=== PATIENT | female | born 1995 | race Caucasian/White ===

== ENCOUNTER 2019-07-17 13:37 | Inpatient (IN) | payer MEDICAID ==
[~2019-07-17] VITALS: Ht 152.4 cm; Wt 56.2 kg
[2019-07-17] MEDS ORDERED: LAMO100 PO (14:07)
[2019-07-17] MEDS ORDERED: SERT100T12 PO (14:07)
[2019-07-17] MEDS ORDERED: NORG1TAB12 PO (14:07)
[2019-07-17] MEDS ORDERED: HALOPERIDOL 5 MG TABLET PO ONE (14:15)
[2019-07-17] MEDS ORDERED: DiphenhydrAMINE HCL 25 MG CAPSULE PO ONE (14:15)
[2019-07-17] MEDS ORDERED: LORazepam 2 MG TABLET PO ONE (14:15)
[2019-07-17 14:38] LABS: BASOPHILS % (AUTO) 1.2 % (0.0-2.0); EOSINOPHILS % (AUTO) 1.7 % (1.0-6.0); HEMATOCRIT 43.2 % (36-46); HEMOGLOBIN 14.4 g/dL (12.0-16.0); LYMPHOCYTES # (AUTO) 1.7 K/uL (1.0-4.8); LYMPHOCYTES % (AUTO) 22.3 % (22.0-44.0); MEAN CORPUSCULAR HEMOGLOBIN 28.9 pg (26.0-34.0); MEAN CORPUSCULAR HGB CONC 33.3 G/dL (31.0-37.0); MEAN CORPUSCULAR VOLUME 87 fL (80-100); MONOCYTES # (AUTO) 0.5 K/uL (0.1-1.0); MONOCYTES % (AUTO) 5.9 % (2.0-9.0); NEUTROPHILS # (AUTO) 5.2 K/uL (1.8-7.7); NEUTROPHILS % (AUTO) 68.9 % (40.0-70.0); PLATELET COUNT (AUTO) 441 K/uL (150-450); RED BLOOD CELL COUNT(AUTO) 4.97 MIL/uL (4.00-5.20); RED CELL DISTRIBUTION WIDTH 13.7 % (11.5-14.5)
[2019-07-17 14:55] LABS: ANION GAP 14 mmol/L (8-16); CALCIUM, TOTAL 9.3 mg/dL (8.8-10.5); CARBON DIOXIDE 25 mmol/L (22-29); CHLORIDE 104 mmol/L (98-107); CREATININE 0.98 mg/dL (0.60-1.30); GLOMERULAR FILTR. RATE CALC > 60 mL/min (>60); GLUCOSE,RANDOM 98 mg/dL (70-110); POTASSIUM 4.1 mmol/L (3.5-5.1); SODIUM SERUM 143 mmol/L (136-145); UREA NITROGEN, BLOOD 14 mg/dL (7-18)
[2019-07-17 14:58] LABS: ALANINE AMINOTRANSFERASE 25 U/L (12-78); ALBUMIN 4.5 g/dL (3.4-5.0); ALKALINE PHOSPHATASE 40 U/L (46-116); ASPARTATE AMINOTRANSFERASE 18 U/L (15-37); BILIRUBIN,TOTAL 0.4 mg/dL (0.1-1.0); TOTAL PROTEIN, SERUM 8.5 g/dL (6.4-8.2)
[2019-07-17 16:23] LABS: AMPHET/METH SCREEN,URINE NEGATIVE (NEGATIVE); BARBITURATE SCREEN, URINE NEGATIVE (NEGATIVE); BENZODIAZEPINES SCREEN,URINE NEGATIVE (NEGATIVE); CANNABINOID SCREEN,URINE POSITIVE (NEGATIVE); COCAINE SCREEN,URINE NEGATIVE (NEGATIVE); METHADONE SCREEN, URINE NEGATIVE (NEGATIVE); OPIATE SCREEN,URINE NEGATIVE (NEGATIVE); PHENCYCLIDINE SCREEN,URINE NEGATIVE (NEGATIVE)
[2019-07-17 21:13] VITALS: BP 128/68
[2019-07-18] MEDS ORDERED: INFLUENZA VIRUS VACCINE QVS 2019-20 (3YR+)/PF 60 MCG/0.5 ML SYRINGE IM ONE (00:15)
[2019-07-18 07:20] VITALS: BP 122/64
[2019-07-18 07:21] VITALS: BP 125/69
[2019-07-18 08:02] VITALS: BP 147/103
[2019-07-18] MEDS: LORazepam 2 MG TABLET PO PRN ×2 (08:11→16:37)
[2019-07-18 09:06] LABS: CHOL/HDL RATIO 2.4 (3.9-5.7); CHOLESTEROL 167 mg/dL (131-200); FREE T4 (FREE THYROXINE) 1.07 ng/dL (0.76-1.46); HCG,QUANTITATIVE < 1 mIU/mL (0-6); HDL CHOLESTEROL 71 mg/dL (40-60); LDL CHOL (CALC.) 76 mg/dL (0-130); THYROID STIMULATING HORMONE 1.45 uIU/mL (0.36-3.74); TRIGLYCERIDES 102 mg/dL (15-150)
[2019-07-18 14:04] VITALS: BP 111/68
[2019-07-18 16:05] VITALS: BP 109/78
[2019-07-18] MEDS: DIVALPROEX SODIUM 500 MG DR TABLET PO SCH (16:37)
[2019-07-18] MEDS: LITHIUM CARBONATE 300 MG CAPSULE PO SCH (16:37)
[2019-07-18] MEDS ORDERED: LOPERAMIDE HCL 2 MG CAPSULE PO PRN (21:00)
[2019-07-18] MEDS ORDERED: BACITRACIN 28.4 GM OINTMENT TP PRN (21:00)
[2019-07-18] MEDS ORDERED: MAG HYDROX/AL HYDROX/SIMETH ES 30 ML SUSPENSION UDCUP PO PRN (21:00)
[2019-07-18] MEDS ORDERED: ALBUTEROL SULFATE HFA 90 MCG/PUFF 8 GM INHALER IH PRN (21:00)
[2019-07-18] MEDS ORDERED: BENZOCAINE/MENTHOL LOZENGE MM PRN (21:00)
[2019-07-18] MEDS ORDERED: ONDANSETRON HCL 4 MG TABLET PO PRN (21:00)
[2019-07-18] MEDS ORDERED: ACETAMINOPHEN 325 MG TABLET PO PRN (21:00)
[2019-07-18] MEDS ORDERED: MAGNESIUM HYDROXIDE SUSPENSION 30 ML UDCUP PO PRN (21:00)
[2019-07-18] MEDS ORDERED: IBUPROFEN 600 MG TABLET PO PRN (21:00)
[2019-07-18] MEDS ORDERED: PETROLATUM,WHITE 28 GM JELLY TP PRN (21:00)
[2019-07-18] MEDS ORDERED: CloNIDine HCL 0.1 MG TABLET PO PRN (21:00)
[2019-07-19 07:05] VITALS: BP 107/78
[2019-07-19 08:07] VITALS: BP 138/79
[2019-07-19] MEDS: OMEPRAZOLE 20 MG CAPSULE PO SCH (08:09)
[2019-07-19] MEDS: LITHIUM CARBONATE 300 MG CAPSULE PO SCH ×2 (08:09→15:56)
[2019-07-19] MEDS: DOCUSATE SODIUM 100 MG CAPSULE PO SCH (08:10)
[2019-07-19] MEDS: DIVALPROEX SODIUM 500 MG DR TABLET PO SCH ×2 (08:10→15:57)
[2019-07-19] MEDS: RisperiDONE 3 MG TABLET PO SCH ×2 (08:33→15:57)
[2019-07-19 09:10] LABS: LITHIUM 0.2 mmol/L (0.60-1.20)
[2019-07-19] MEDS: LORazepam 2 MG TABLET PO PRN (09:16)
[2019-07-19 16:01] VITALS: BP 102/65
[2019-07-20] MEDS ORDERED: DIVA-78 PO (02:32)
[2019-07-20] MEDS ORDERED: LITH300C3 PO (02:32)
[2019-07-20] MEDS ORDERED: RISP3 PO (02:32)
[2019-07-20 06:37] VITALS: BP 102/63
[2019-07-20 08:25] VITALS: BP 143/77
[2019-07-20] MEDS: OMEPRAZOLE 20 MG CAPSULE PO SCH (08:31)
[2019-07-20] MEDS: RisperiDONE 3 MG TABLET PO SCH ×2 (08:31→16:09)
[2019-07-20] MEDS: LITHIUM CARBONATE 300 MG CAPSULE PO SCH ×2 (08:31→16:09)
[2019-07-20] MEDS: DOCUSATE SODIUM 100 MG CAPSULE PO SCH (08:31)
[2019-07-20] MEDS: DIVALPROEX SODIUM 500 MG DR TABLET PO SCH ×2 (08:31→16:09)
[2019-07-20] MEDS: LORazepam 2 MG TABLET PO PRN (16:13)
[2019-07-20 16:24] VITALS: BP 120/72
[2019-07-21 02:15] VITALS: BP 103/51
[2019-07-21] MEDS: HALOPERIDOL 5 MG TABLET PO PRN (05:35)
[2019-07-21] MEDS: LORazepam 2 MG TABLET PO PRN (05:35)
[2019-07-21 08:23] VITALS: BP 109/66
[2019-07-21] MEDS: DOCUSATE SODIUM 100 MG CAPSULE PO SCH (08:38)
[2019-07-21] MEDS: RisperiDONE 3 MG TABLET PO SCH ×2 (08:39→16:05)
[2019-07-21] MEDS: OMEPRAZOLE 20 MG CAPSULE PO SCH (08:39)
[2019-07-21] MEDS: LITHIUM CARBONATE 300 MG CAPSULE PO SCH ×2 (08:39→16:05)
[2019-07-21] MEDS: DIVALPROEX SODIUM 500 MG DR TABLET PO SCH ×2 (08:39→16:05)
[2019-07-21 16:01] VITALS: BP 103/69
[2019-07-22 02:38] VITALS: BP 112/75
[2019-07-22] MEDS: HALOPERIDOL 5 MG TABLET PO PRN ×2 (02:46→18:42)
[2019-07-22] MEDS: LORazepam 2 MG TABLET PO PRN ×2 (02:46→18:43)
[2019-07-22 08:12] VITALS: BP 110/71
[2019-07-22] MEDS: DIVALPROEX SODIUM 500 MG DR TABLET PO SCH ×2 (08:51→16:36)
[2019-07-22] MEDS: LITHIUM CARBONATE 300 MG CAPSULE PO SCH ×2 (08:51→16:36)
[2019-07-22] MEDS: DOCUSATE SODIUM 100 MG CAPSULE PO SCH (08:51)
[2019-07-22] MEDS: RisperiDONE 3 MG TABLET PO SCH ×2 (08:51→16:36)
[2019-07-22] MEDS: OMEPRAZOLE 20 MG CAPSULE PO SCH (08:51)
[2019-07-22 16:11] VITALS: BP 100/60
[2019-07-22] MEDS: ZOLPIDEM TARTRATE 10 MG TABLET PO PRN (20:09)
[2019-07-23] MEDS: HALOPERIDOL 5 MG TABLET PO PRN (05:17)
[2019-07-23] MEDS: LORazepam 2 MG TABLET PO PRN (05:17)
[2019-07-23 06:20] VITALS: BP 103/62
[2019-07-23 08:07] VITALS: BP 107/46
[2019-07-23] MEDS: RisperiDONE 3 MG TABLET PO SCH ×2 (09:08→16:40)
[2019-07-23] MEDS: OMEPRAZOLE 20 MG CAPSULE PO SCH (09:08)
[2019-07-23] MEDS: DOCUSATE SODIUM 100 MG CAPSULE PO SCH (09:08)
[2019-07-23] MEDS: DIVALPROEX SODIUM 500 MG DR TABLET PO SCH ×2 (09:08→16:41)
[2019-07-23] MEDS: LITHIUM CARBONATE 300 MG CAPSULE PO SCH ×2 (09:08→16:40)
[2019-07-23 16:01] VITALS: BP 108/65
[2019-07-23] MEDS: ZOLPIDEM TARTRATE 10 MG TABLET PO PRN (20:33)
[2019-07-24 03:55] VITALS: BP 105/64
[2019-07-24] MEDS: HALOPERIDOL 5 MG TABLET PO PRN (03:58)
[2019-07-24] MEDS: LORazepam 2 MG TABLET PO PRN ×2 (03:58→16:00)
[2019-07-24 07:54] LABS: LITHIUM 0.4 mmol/L (0.60-1.20)
[2019-07-24 08:27] VITALS: BP 110/65
[2019-07-24] MEDS: LITHIUM CARBONATE 300 MG CAPSULE PO SCH ×2 (09:05→16:00)
[2019-07-24] MEDS: DOCUSATE SODIUM 100 MG CAPSULE PO SCH (09:05)
[2019-07-24] MEDS: OMEPRAZOLE 20 MG CAPSULE PO SCH (09:05)
[2019-07-24] MEDS: DIVALPROEX SODIUM 500 MG DR TABLET PO SCH ×2 (09:05→16:00)
[2019-07-24] MEDS: RisperiDONE 3 MG TABLET PO SCH ×2 (09:05→16:00)
[2019-07-24 16:06] VITALS: BP 111/69
[2019-07-25 02:17] VITALS: BP 115/69
[2019-07-25] MEDS: ZOLPIDEM TARTRATE 10 MG TABLET PO PRN (02:24)
[2019-07-25] MEDS: LORazepam 2 MG TABLET PO PRN ×2 (02:24→21:21)
[2019-07-25 08:12] VITALS: BP 116/61
[2019-07-25] MEDS: RisperiDONE 3 MG TABLET PO SCH ×2 (08:34→16:24)
[2019-07-25] MEDS: DOCUSATE SODIUM 100 MG CAPSULE PO SCH (08:35)
[2019-07-25] MEDS: DIVALPROEX SODIUM 500 MG DR TABLET PO SCH ×3 (08:35→16:24)
[2019-07-25] MEDS: LITHIUM CARBONATE 300 MG CAPSULE PO SCH ×3 (08:35→16:24)
[2019-07-25] MEDS: OMEPRAZOLE 20 MG CAPSULE PO SCH (08:35)
[2019-07-25 16:01] VITALS: BP 138/79
[2019-07-26 06:51] VITALS: BP 110/72
[2019-07-26 08:02] VITALS: BP 117/68
[2019-07-26] MEDS: OMEPRAZOLE 20 MG CAPSULE PO SCH (08:47)
[2019-07-26] MEDS: DOCUSATE SODIUM 100 MG CAPSULE PO SCH (08:47)
[2019-07-26] MEDS: RisperiDONE 3 MG TABLET PO SCH ×2 (08:47→16:18)
[2019-07-26] MEDS: DIVALPROEX SODIUM 500 MG DR TABLET PO SCH ×3 (08:47→16:17)
[2019-07-26] MEDS: LITHIUM CARBONATE 300 MG CAPSULE PO SCH ×3 (08:47→16:17)
[2019-07-26] MEDS ORDERED: DIVA-76 PO (14:33)
[2019-07-26] MEDS ORDERED: LITH300C3 PO (14:33)
== END 2019-07-26 15:42 | disposition home or self-care (01) | DRG 753 ==
LOC: EMS 13:38 → B3A 17:51
PROVIDERS: ADMIT Psychiatry & Neurology Psychiatry; ATTEND Psychiatry & Neurology Psychiatry
PROC: 3E0234Z Introduction of Serum, Toxoid and Vaccine into Muscle, Percutaneous Approach (ICD-10-PCS; principal; 2019-07-18)
DX: F31.81 Bipolar II disorder (principal); R45.850 Homicidal ideations; R45.851 Suicidal ideations; F43.10 Post-traumatic stress disorder, unspecified; G47.00 Insomnia, unspecified; K59.00 Constipation, unspecified; F12.90 Cannabis use, unspecified, uncomplicated; Z79.899 Other long term (current) drug therapy; Z23 Encounter for immunization
CPT/HCPCS: 84439; 84443; 90686; G0480

== ENCOUNTER 2019-07-28 13:32 | Inpatient (IN) | payer MEDICAID ==
[~2019-07-28] VITALS: Ht 152.4 cm; Wt 60.3 kg
[~2019-07-28 13:32] MED LIST: DIVA-76 PO; LITH300C3 PO; RISP3 PO
[2019-07-28] MEDS ORDERED: HALOPERIDOL 5 MG TABLET PO PRN (14:45)
[2019-07-28] MEDS ORDERED: DIVA-78 PO (15:04)
[2019-07-28 15:45] VITALS: BP 147/61
[2019-07-28 16:21] VITALS: BP 117/68
[2019-07-28] MEDS: LORazepam 2 MG TABLET PO PRN (16:40)
[2019-07-28] MEDS ORDERED: BACITRACIN 28.4 GM OINTMENT TP PRN (17:15)
[2019-07-28] MEDS ORDERED: OMEPRAZOLE 20 MG CAPSULE PO PRN (17:15)
[2019-07-28] MEDS ORDERED: IBUPROFEN 600 MG TABLET PO PRN (17:15)
[2019-07-28] MEDS ORDERED: LOPERAMIDE HCL 2 MG CAPSULE PO PRN (17:15)
[2019-07-28] MEDS ORDERED: PNEUMOCOCCAL VACCINE POLYVALENT 0.5 ML VIAL [PPSV23] IM ONE (17:15)
[2019-07-28] MEDS ORDERED: MAG HYDROX/AL HYDROX/SIMETH ES 30 ML SUSPENSION UDCUP PO PRN (17:15)
[2019-07-28] MEDS ORDERED: MAGNESIUM HYDROXIDE SUSPENSION 30 ML UDCUP PO PRN (17:15)
[2019-07-28] MEDS ORDERED: DOCUSATE SODIUM 100 MG CAPSULE PO PRN (17:15)
[2019-07-28] MEDS ORDERED: ALBUTEROL SULFATE HFA 90 MCG/PUFF 8 GM INHALER IH PRN (17:15)
[2019-07-28] MEDS ORDERED: BENZOCAINE/MENTHOL LOZENGE MM PRN (17:15)
[2019-07-28] MEDS ORDERED: ONDANSETRON HCL 4 MG TABLET PO PRN (17:15)
[2019-07-28] MEDS ORDERED: -PHARMACY VACCINE NOTE- MISC ONE (17:15)
[2019-07-28] MEDS ORDERED: PETROLATUM,WHITE 28 GM JELLY TP PRN (17:15)
[2019-07-28] MEDS ORDERED: ACETAMINOPHEN 325 MG TABLET PO PRN (17:15)
[2019-07-28] MEDS ORDERED: CloNIDine HCL 0.1 MG TABLET PO PRN (17:15)
[2019-07-28 17:54] VITALS: BP 105/68
[2019-07-29 06:35] VITALS: BP 112/67
[2019-07-29 07:37] LABS: BASOPHILS % (AUTO) 2.3 % (0.0-2.0); EOSINOPHILS % (AUTO) 7.5 % (1.0-6.0); HEMATOCRIT 40.1 % (36-46); HEMOGLOBIN 13.5 g/dL (12.0-16.0); LYMPHOCYTES # (AUTO) 2.3 K/uL (1.0-4.8); LYMPHOCYTES % (AUTO) 40.7 % (22.0-44.0); MEAN CORPUSCULAR HEMOGLOBIN 29.4 pg (26.0-34.0); MEAN CORPUSCULAR HGB CONC 33.6 G/dL (31.0-37.0); MEAN CORPUSCULAR VOLUME 88 fL (80-100); MONOCYTES # (AUTO) 0.8 K/uL (0.1-1.0); MONOCYTES % (AUTO) 14.2 % (2.0-9.0); NEUTROPHILS % (AUTO) 35.3 % (40.0-70.0); PLATELET COUNT (AUTO) 329 K/uL (150-450); RED BLOOD CELL COUNT(AUTO) 4.58 MIL/uL (4.00-5.20); RED CELL DISTRIBUTION WIDTH 13.2 % (11.5-14.5)
[2019-07-29 07:59] LABS: ALANINE AMINOTRANSFERASE 18 U/L (12-78); ALBUMIN 3.6 g/dL (3.4-5.0); ALKALINE PHOSPHATASE 37 U/L (46-116); ANION GAP 6 mmol/L (8-16); ASPARTATE AMINOTRANSFERASE 9 U/L (15-37); BILIRUBIN,TOTAL 0.3 mg/dL (0.1-1.0); CALCIUM, TOTAL 8.8 mg/dL (8.8-10.5); CARBON DIOXIDE 29 mmol/L (22-29); CHLORIDE 105 mmol/L (98-107); CHOL/HDL RATIO 1.8 (3.9-5.7); CHOLESTEROL 152 mg/dL (131-200); CREATININE 0.86 mg/dL (0.60-1.30); FREE T4 (FREE THYROXINE) 0.81 ng/dL (0.76-1.46); GLOMERULAR FILTR. RATE CALC > 60 mL/min (>60); GLUCOSE,RANDOM 83 mg/dL (70-110); HCG,QUANTITATIVE < 1 mIU/mL (0-6); HDL CHOLESTEROL 84 mg/dL (40-60); LDL CHOL (CALC.) 55 mg/dL (0-130); POTASSIUM 4.1 mmol/L (3.5-5.1); SODIUM SERUM 140 mmol/L (136-145); THYROID STIMULATING HORMONE 2.31 uIU/mL (0.36-3.74); TOTAL PROTEIN, SERUM 7.1 g/dL (6.4-8.2); TRIGLYCERIDES 64 mg/dL (15-150); UREA NITROGEN, BLOOD 20 mg/dL (7-18)
[2019-07-29 08:00] VITALS: BP 110/71
[2019-07-29] MEDS: LORazepam 2 MG TABLET PO PRN ×2 (08:01→14:27)
[2019-07-29 08:28] VITALS: BP 102/67
[2019-07-29 16:07] VITALS: BP 123/68
[2019-07-29] MEDS: RisperiDONE 3 MG TABLET PO SCH (19:27)
[2019-07-30 05:01] VITALS: BP 121/68
[2019-07-30] MEDS: LORazepam 2 MG TABLET PO PRN ×2 (05:04→14:41)
[2019-07-30] MEDS: RisperiDONE 3 MG TABLET PO SCH ×2 (08:15→16:12)
[2019-07-30] MEDS: DIVALPROEX SODIUM 500 MG DR TABLET PO SCH ×3 (08:15→16:12)
[2019-07-30] MEDS: LITHIUM CARBONATE 300 MG CAPSULE PO SCH ×3 (08:16→16:12)
[2019-07-30 08:18] VITALS: BP 111/63
[2019-07-30 16:23] VITALS: BP 108/62
[2019-07-31 05:21] VITALS: BP 126/74
[2019-07-31] MEDS: DIVALPROEX SODIUM 500 MG DR TABLET PO SCH ×3 (08:25→16:29)
[2019-07-31] MEDS: RisperiDONE 3 MG TABLET PO SCH ×2 (08:25→16:29)
[2019-07-31] MEDS: LITHIUM CARBONATE 300 MG CAPSULE PO SCH ×3 (08:25→16:29)
[2019-07-31 08:30] VITALS: BP 103/65
[2019-07-31] MEDS: LORazepam 2 MG TABLET PO PRN ×2 (09:52→17:42)
[2019-07-31] MEDS: MUPIROCIN CALCIUM 2% 22 GM OINTMENT NASAL SCH (16:29)
[2019-07-31 17:11] VITALS: BP 118/88
[2019-08-01 05:56] VITALS: BP 103/65
[2019-08-01] MEDS: RisperiDONE 3 MG TABLET PO SCH ×2 (08:08→16:34)
[2019-08-01] MEDS: MUPIROCIN CALCIUM 2% 22 GM OINTMENT NASAL SCH ×2 (08:08→16:34)
[2019-08-01] MEDS: DIVALPROEX SODIUM 500 MG DR TABLET PO SCH ×3 (08:08→16:34)
[2019-08-01] MEDS: LITHIUM CARBONATE 300 MG CAPSULE PO SCH ×3 (08:08→16:34)
[2019-08-01 08:20] VITALS: BP 102/60
[2019-08-01 16:12] VITALS: BP 105/65
[2019-08-01] MEDS: LORazepam 2 MG TABLET PO PRN (16:35)
[2019-08-02 00:15] VITALS: BP 114/75
[2019-08-02] MEDS: ZOLPIDEM TARTRATE 10 MG TABLET PO PRN (00:42)
[2019-08-02] MEDS: LORazepam 2 MG TABLET PO PRN ×2 (05:37→22:48)
[2019-08-02 08:15] VITALS: BP 104/56
[2019-08-02] MEDS: LITHIUM CARBONATE 300 MG CAPSULE PO SCH ×3 (08:33→16:23)
[2019-08-02] MEDS: DIVALPROEX SODIUM 500 MG DR TABLET PO SCH ×3 (08:33→16:23)
[2019-08-02] MEDS: RisperiDONE 3 MG TABLET PO SCH ×2 (08:33→16:23)
[2019-08-02] MEDS: MUPIROCIN CALCIUM 2% 22 GM OINTMENT NASAL SCH ×2 (08:34→16:22)
[2019-08-02] MEDS ORDERED: RisperiDONE MICROSPHERES 50 MG/2 ML SYRINGE IM SCH (09:00)
[2019-08-02 09:56] LABS: LITHIUM 0.4 mmol/L (0.60-1.20)
[2019-08-02 16:32] VITALS: BP 103/70
[2019-08-03 06:18] VITALS: BP 102/65
[2019-08-03] MEDS: MUPIROCIN CALCIUM 2% 22 GM OINTMENT NASAL SCH ×2 (08:08→16:00)
[2019-08-03] MEDS: RisperiDONE 3 MG TABLET PO SCH ×2 (08:09→16:00)
[2019-08-03] MEDS: LITHIUM CARBONATE 300 MG CAPSULE PO SCH ×3 (08:09→16:00)
[2019-08-03] MEDS: DIVALPROEX SODIUM 500 MG DR TABLET PO SCH ×3 (08:09→16:00)
[2019-08-03 08:20] VITALS: BP 124/59
[2019-08-03 16:54] VITALS: BP 111/70
[2019-08-03] MEDS: LORazepam 2 MG TABLET PO PRN (21:11)
[2019-08-04 01:24] VITALS: BP 119/67
[2019-08-04] MEDS: ZOLPIDEM TARTRATE 10 MG TABLET PO PRN ×2 (01:57→22:50)
[2019-08-04 08:10] VITALS: BP 126/74
[2019-08-04] MEDS: RisperiDONE 3 MG TABLET PO SCH ×2 (08:12→16:14)
[2019-08-04] MEDS: LITHIUM CARBONATE 300 MG CAPSULE PO SCH ×3 (08:12→16:14)
[2019-08-04] MEDS: DIVALPROEX SODIUM 500 MG DR TABLET PO SCH ×3 (08:12→16:14)
[2019-08-04] MEDS: MUPIROCIN CALCIUM 2% 22 GM OINTMENT NASAL SCH ×2 (08:13→16:15)
[2019-08-04] MEDS: LORazepam 2 MG TABLET PO PRN ×2 (08:23→17:04)
[2019-08-04 15:58] VITALS: BP 109/63
[2019-08-04 18:34] VITALS: BP 109/63
[2019-08-05] MEDS: LORazepam 2 MG TABLET PO PRN ×2 (03:55→12:30)
[2019-08-05 06:20] VITALS: BP 110/65
[2019-08-05] MEDS: LITHIUM CARBONATE 300 MG CAPSULE PO SCH ×3 (08:26→16:33)
[2019-08-05] MEDS: RisperiDONE 3 MG TABLET PO SCH (08:26)
[2019-08-05] MEDS: DIVALPROEX SODIUM 500 MG DR TABLET PO SCH ×3 (08:26→16:33)
[2019-08-05] MEDS: MUPIROCIN CALCIUM 2% 22 GM OINTMENT NASAL SCH (08:26)
[2019-08-05 08:32] VITALS: BP 120/70
[2019-08-05] MEDS ORDERED: RISPC50 IM (14:01)
[2019-08-05 16:06] VITALS: BP 100/63
== END 2019-08-05 18:01 | disposition home or self-care (01) | DRG 753 ==
LOC: B3A 15:52
PROVIDERS: ADMIT Psychiatry & Neurology Psychiatry; ATTEND Psychiatry & Neurology Psychiatry
DX: F31.9 Bipolar disorder, unspecified (principal); R45.851 Suicidal ideations; F22 Delusional disorders; F41.9 Anxiety disorder, unspecified; G47.00 Insomnia, unspecified; F12.90 Cannabis use, unspecified, uncomplicated; K59.00 Constipation, unspecified; Z59.0 Homelessness; Z56.0 Unemployment, unspecified; Z79.899 Other long term (current) drug therapy
CPT/HCPCS: 84439; 84443; 87081; J2794

== ENCOUNTER 2019-08-13 15:44 | Inpatient (IN) | payer MEDICAID ==
[~2019-08-13] VITALS: Ht 152.4 cm; Wt 63.3 kg
[~2019-08-13 15:44] MED LIST changes: -DIVA-76 PO; +DIVA-78 PO; -LITH300C3 PO; -RISP3 PO; +RISPC50 IM
[2019-08-13 16:12] LABS: GLUCOSE,POINT OF CARE 92 MG/DL (70-110)
[2019-08-13] MEDS ORDERED: NORG-20 PO (17:09)
[2019-08-13 17:36] LABS: BASOPHILS % (AUTO) 1.1 % (0.0-2.0); EOSINOPHILS % (AUTO) 0.7 % (1.0-6.0); HEMATOCRIT 42.6 % (36-46); HEMOGLOBIN 14.1 g/dL (12.0-16.0); LYMPHOCYTES # (AUTO) 2.6 K/uL (1.0-4.8); LYMPHOCYTES % (AUTO) 26.7 % (22.0-44.0); MEAN CORPUSCULAR HEMOGLOBIN 28.7 pg (26.0-34.0); MEAN CORPUSCULAR HGB CONC 33.1 G/dL (31.0-37.0); MEAN CORPUSCULAR VOLUME 87 fL (80-100); MONOCYTES # (AUTO) 0.7 K/uL (0.1-1.0); MONOCYTES % (AUTO) 7.3 % (2.0-9.0); NEUTROPHILS # (AUTO) 6.3 K/uL (1.8-7.7); NEUTROPHILS % (AUTO) 64.2 % (40.0-70.0); PLATELET COUNT (AUTO) 415 K/uL (150-450); RED BLOOD CELL COUNT(AUTO) 4.91 MIL/uL (4.00-5.20); RED CELL DISTRIBUTION WIDTH 13.7 % (11.5-14.5)
[2019-08-13 17:46] LABS: ANION GAP 10 mmol/L (8-16); CALCIUM, TOTAL 9.2 mg/dL (8.8-10.5); CARBON DIOXIDE 26 mmol/L (22-29); CHLORIDE 103 mmol/L (98-107); CREATININE 0.93 mg/dL (0.60-1.30); GLOMERULAR FILTR. RATE CALC > 60 mL/min (>60); GLUCOSE,RANDOM 86 mg/dL (70-110); POTASSIUM 4.1 mmol/L (3.5-5.1); SODIUM SERUM 139 mmol/L (136-145); UREA NITROGEN, BLOOD 14 mg/dL (7-18)
[2019-08-13 17:47] LABS: APPEARANCE,URINE CLOUDY (CLEAR); BILIRUBIN,URINE NEGATIVE (NEGATIVE); GLUCOSE, URINE (UA) NEGATIVE (NEGATIVE); KETONES,URINE 15 mg/dL (NEGATIVE); LEUKOCYTE ESTERASE ,URINE MODERATE (NEGATIVE); NITRATE,URINE NEGATIVE (NEGATIVE); OCCULT BLOOD,URINE NEGATIVE (NEGATIVE); PH,URINE 7.5 (5.0-8.0); PROTEIN,URINE NEGATIVE (NEGATIVE); UROBILINOGEN,URINE 0.2 mg/dL (<=1.0)
[2019-08-13 17:51] LABS: AMPHET/METH SCREEN,URINE NEGATIVE (NEGATIVE); BARBITURATE SCREEN, URINE NEGATIVE (NEGATIVE); BENZODIAZEPINES SCREEN,URINE NEGATIVE (NEGATIVE); CANNABINOID SCREEN,URINE POSITIVE (NEGATIVE); COCAINE SCREEN,URINE NEGATIVE (NEGATIVE); METHADONE SCREEN, URINE NEGATIVE (NEGATIVE); OPIATE SCREEN,URINE NEGATIVE (NEGATIVE); PHENCYCLIDINE SCREEN,URINE NEGATIVE (NEGATIVE)
[2019-08-13 17:55] LABS: SALICYLATE < 2.8 mg/dL (2.8-20.0)
[2019-08-13 17:57] LABS: ALANINE AMINOTRANSFERASE 14 U/L (12-78); ALBUMIN 4.2 g/dL (3.4-5.0); ALKALINE PHOSPHATASE 37 U/L (46-116); ASPARTATE AMINOTRANSFERASE 13 U/L (15-37); BILIRUBIN,TOTAL 0.4 mg/dL (0.1-1.0); HCG,QUANTITATIVE < 1 mIU/mL (0-6); TOTAL PROTEIN, SERUM 8.4 g/dL (6.4-8.2)
[2019-08-13 17:58] LABS: BACTERIA,URINE Moderate /HPF (None Seen); RBC,URINE 0-2 /HPF (0-2); SQUAMOUS EPITHELIAL CELL,UR Many /LPF (None Seen)
[2019-08-13 18:01] LABS: ACETAMINOPHEN < 2 mcg/mL (10-30)
[2019-08-13] MEDS ORDERED: CEPHALEXIN MONOHYDRATE 500 MG CAPSULE PO ONE (18:15)
[2019-08-13 20:15] LABS: VALPROIC ACID 62 mcg/mL (50-100)
[2019-08-13] MEDS: ZOLPIDEM TARTRATE 10 MG TABLET PO PRN (21:50)
[2019-08-14 01:07] VITALS: BP 120/81
[2019-08-14 08:13] VITALS: BP 134/89
[2019-08-14 09:22] LABS: CHOL/HDL RATIO 2.3 (3.9-5.7)
[2019-08-14 17:00] VITALS: BP 134/77
[2019-08-14] MEDS: LORazepam 2 MG TABLET PO PRN (19:21)
[2019-08-15 05:42] VITALS: BP 107/69
[2019-08-15] MEDS: DIVALPROEX SODIUM 500 MG DR TABLET PO SCH ×2 (08:11→16:28)
[2019-08-15] MEDS: LITHIUM CARBONATE 300 MG CAPSULE PO SCH ×3 (08:12→16:29)
[2019-08-15 08:15] VITALS: BP 105/63
[2019-08-15 09:40] VITALS: BP 112/74
[2019-08-15] MEDS: LORazepam 2 MG TABLET PO PRN (09:41)
[2019-08-15] MEDS: HALOPERIDOL 5 MG TABLET PO PRN (09:59)
[2019-08-15] MEDS ORDERED: MUPIROCIN CALCIUM 2% 15 GM CREAM TP SCH (11:15)
[2019-08-15] MEDS: MUPIROCIN CALCIUM 2% 22 GM OINTMENT NASAL SCH (11:15)
[2019-08-15] MEDS: NITROFURANTOIN/NITROFURAN MAC 100 MG CAPSULE [MACROBID] PO SCH (16:28)
[2019-08-15 16:30] VITALS: BP 104/65
[2019-08-15] MEDS ORDERED: RisperiDONE MICROSPHERES 50 MG/2 ML SYRINGE IM SCH (17:00)
[2019-08-16 07:04] VITALS: BP 111/62
[2019-08-16 08:15] VITALS: BP 148/84
[2019-08-16] MEDS: DIVALPROEX SODIUM 500 MG DR TABLET PO SCH ×2 (08:55→16:53)
[2019-08-16] MEDS: LITHIUM CARBONATE 300 MG CAPSULE PO SCH ×3 (08:55→16:53)
[2019-08-16] MEDS: NITROFURANTOIN/NITROFURAN MAC 100 MG CAPSULE [MACROBID] PO SCH ×2 (08:55→16:53)
[2019-08-16] MEDS ORDERED: RisperiDONE MICROSPHERES 50 MG/2 ML SYRINGE IM SCH (09:00)
[2019-08-16] MEDS: MUPIROCIN CALCIUM 2% 22 GM OINTMENT NASAL SCH (09:02)
[2019-08-16] MEDS: HALOPERIDOL 5 MG TABLET PO PRN (09:57)
[2019-08-16] MEDS: LORazepam 2 MG TABLET PO PRN (09:57)
[2019-08-16 16:09] VITALS: BP 115/74
[2019-08-17 00:40] VITALS: BP 118/71
[2019-08-17] MEDS: ZOLPIDEM TARTRATE 10 MG TABLET PO PRN ×2 (00:47→20:47)
[2019-08-17] MEDS: LORazepam 2 MG TABLET PO PRN ×2 (05:35→12:25)
[2019-08-17 08:19] VITALS: BP 120/76
[2019-08-17] MEDS: MUPIROCIN CALCIUM 2% 22 GM OINTMENT NASAL SCH (08:32)
[2019-08-17] MEDS: DIVALPROEX SODIUM 500 MG DR TABLET PO SCH ×2 (08:32→16:20)
[2019-08-17] MEDS: LITHIUM CARBONATE 300 MG CAPSULE PO SCH ×3 (08:32→16:20)
[2019-08-17] MEDS: NITROFURANTOIN/NITROFURAN MAC 100 MG CAPSULE [MACROBID] PO SCH ×2 (08:32→16:20)
[2019-08-17] MEDS ORDERED: ACETAMINOPHEN 325 MG TABLET PO PRN (09:00)
[2019-08-17] MEDS ORDERED: CloNIDine HCL 0.1 MG TABLET PO PRN (09:00)
[2019-08-17] MEDS ORDERED: ALBUTEROL SULFATE HFA 90 MCG/PUFF 8 GM INHALER IH PRN (09:00)
[2019-08-17] MEDS ORDERED: ONDANSETRON HCL 4 MG TABLET PO PRN (09:00)
[2019-08-17] MEDS ORDERED: MAGNESIUM HYDROXIDE SUSPENSION 30 ML UDCUP PO PRN (09:00)
[2019-08-17] MEDS ORDERED: BENZOCAINE/MENTHOL LOZENGE MM PRN (09:00)
[2019-08-17] MEDS ORDERED: OMEPRAZOLE 20 MG CAPSULE PO PRN (09:00)
[2019-08-17] MEDS ORDERED: LOPERAMIDE HCL 2 MG CAPSULE PO PRN (09:00)
[2019-08-17] MEDS ORDERED: PETROLATUM,WHITE 28 GM JELLY TP PRN (09:00)
[2019-08-17] MEDS ORDERED: IBUPROFEN 600 MG TABLET PO PRN (09:00)
[2019-08-17] MEDS ORDERED: DOCUSATE SODIUM 100 MG CAPSULE PO PRN (09:00)
[2019-08-17] MEDS ORDERED: MAG HYDROX/AL HYDROX/SIMETH ES 30 ML SUSPENSION UDCUP PO PRN (09:00)
[2019-08-17] MEDS ORDERED: BACITRACIN 28.4 GM OINTMENT TP PRN (09:00)
[2019-08-17 16:20] VITALS: BP 100/61
[2019-08-18 01:12] VITALS: BP 127/72
[2019-08-18] MEDS: LITHIUM CARBONATE 300 MG CAPSULE PO SCH ×3 (08:03→17:37)
[2019-08-18] MEDS: NITROFURANTOIN/NITROFURAN MAC 100 MG CAPSULE [MACROBID] PO SCH ×2 (08:03→16:35)
[2019-08-18] MEDS: MUPIROCIN CALCIUM 2% 22 GM OINTMENT NASAL SCH (08:03)
[2019-08-18] MEDS: DIVALPROEX SODIUM 500 MG DR TABLET PO SCH ×2 (08:03→17:37)
[2019-08-18 08:25] VITALS: BP 100/55
[2019-08-18 10:27] VITALS: BP 110/72
[2019-08-18] MEDS: LORazepam 2 MG TABLET PO PRN ×2 (10:29→20:49)
[2019-08-18 16:11] VITALS: BP 115/69
[2019-08-18] MEDS: ZOLPIDEM TARTRATE 10 MG TABLET PO PRN (20:51)
[2019-08-19 03:46] VITALS: BP 101/62
[2019-08-19] MEDS: LORazepam 2 MG TABLET PO PRN (03:50)
[2019-08-19] MEDS: MUPIROCIN CALCIUM 2% 22 GM OINTMENT NASAL SCH (08:06)
[2019-08-19] MEDS: DIVALPROEX SODIUM 500 MG DR TABLET PO SCH ×2 (08:06→16:04)
[2019-08-19] MEDS: NITROFURANTOIN/NITROFURAN MAC 100 MG CAPSULE [MACROBID] PO SCH ×2 (08:07→16:04)
[2019-08-19] MEDS: LITHIUM CARBONATE 300 MG CAPSULE PO SCH ×3 (08:07→16:04)
[2019-08-19 08:16] VITALS: BP 100/57
[2019-08-19 16:22] VITALS: BP 113/64
[2019-08-19] MEDS: ZOLPIDEM TARTRATE 10 MG TABLET PO PRN (20:22)
[2019-08-20 02:18] VITALS: BP 109/68
[2019-08-20] MEDS: LORazepam 2 MG TABLET PO PRN (02:20)
[2019-08-20 08:02] VITALS: BP 100/48
[2019-08-20] MEDS: LITHIUM CARBONATE 300 MG CAPSULE PO SCH ×3 (08:12→16:34)
[2019-08-20] MEDS: NITROFURANTOIN/NITROFURAN MAC 100 MG CAPSULE [MACROBID] PO SCH (08:12)
[2019-08-20] MEDS: DIVALPROEX SODIUM 500 MG DR TABLET PO SCH ×2 (08:12→16:34)
[2019-08-20 08:16] LABS: LITHIUM 0.4 mmol/L (0.60-1.20)
[2019-08-20 16:09] VITALS: BP 109/61
[2019-08-20] MEDS: ZOLPIDEM TARTRATE 10 MG TABLET PO PRN (20:23)
[2019-08-21] MEDS: LORazepam 2 MG TABLET PO PRN (01:01)
[2019-08-21 06:08] VITALS: BP 101/65
[2019-08-21] MEDS: DIVALPROEX SODIUM 500 MG DR TABLET PO SCH ×2 (08:02→16:13)
[2019-08-21] MEDS: LITHIUM CARBONATE 300 MG CAPSULE PO SCH ×3 (08:02→16:13)
[2019-08-21 08:06] VITALS: BP 115/59
[2019-08-21 16:04] VITALS: BP 100/69
[2019-08-21] MEDS: ZOLPIDEM TARTRATE 10 MG TABLET PO PRN (20:07)
[2019-08-22] MEDS: LORazepam 2 MG TABLET PO PRN (00:59)
[2019-08-22 01:00] VITALS: BP 121/65
[2019-08-22] MEDS: DIVALPROEX SODIUM 500 MG DR TABLET PO SCH ×2 (08:10→16:23)
[2019-08-22] MEDS: LITHIUM CARBONATE 300 MG CAPSULE PO SCH ×3 (08:10→16:23)
[2019-08-22 08:19] VITALS: BP 105/66
[2019-08-22 16:03] VITALS: BP 109/65
[2019-08-23 00:05] VITALS: BP 104/71
[2019-08-23] MEDS: ZOLPIDEM TARTRATE 10 MG TABLET PO PRN (00:21)
[2019-08-23] MEDS: LITHIUM CARBONATE 300 MG CAPSULE PO SCH ×2 (08:16→12:49)
[2019-08-23] MEDS: DIVALPROEX SODIUM 500 MG DR TABLET PO SCH (08:16)
[2019-08-23 08:21] VITALS: BP 104/59
[2019-08-23] MEDS ORDERED: LITH300C3 PO (12:17)
== END 2019-08-23 14:43 | disposition home or self-care (01) | DRG 750 ==
LOC: EMS 15:44 → B3A 21:30
PROVIDERS: ADMIT Psychiatry & Neurology Psychiatry; ATTEND Psychiatry & Neurology Psychiatry
DX: F25.1 Schizoaffective disorder, depressive type (principal); F12.90 Cannabis use, unspecified, uncomplicated; F41.9 Anxiety disorder, unspecified; G47.00 Insomnia, unspecified; N39.0 Urinary tract infection, site not specified; K59.00 Constipation, unspecified
CPT/HCPCS: 87081; 87086; G0480; G0481; J2794